=== PATIENT | female | born 1980 ===

== ENCOUNTER 2018-01-07 04:35 | Inpatient (IN) | payer OTHER, MEDICAID, SELFPAY ==
[2018-01-07] VITALS (10 sets, daily range): BP systolic 109–124; BP diastolic 66–79; PULSE 80–99; RESP 10–16; TEMP 36.6–37.3; O2SAT 98–100; BMI 34.0
[2018-01-07] MEDS: DEXTROSE 5%-0.9% NS 1,000 ML 100 ML IV (04:45)
[2018-01-07] MEDS: PROPOFOL 1,000 MG/100 ML VIAL 2.9 MG IV (06:12)
--- NOTE | 2018-01-07 06:30 | PC.ADMIT ---
Addendum entered by Julienne Canas R.N. 01/07/18 07:04: Pt awake, following commands. Communicating via sign language and writing on paper. Asked for her cellphone to look at pictures of her kids, found in belongings and given to patient. Remains calm and cooperative. Plans for extubation today per Dr. Shaw. Original Note: Addendum entered by Julienne Canas R.N. 01/07/18 06:45: Dr. Shaw updated on patient status. No new orders. Original Note: [id number] [facility] Admission Note: The patient,Kacie Greene,37 y/o, was given written information regarding hospital policies, unit procedures and contact persons. Patient's smoking status: Former smoker. Vital Signs - 8 hr 01/07/18 06:13 Temperature 98 F Pulse Rate 86 Respiratory Rate 14 Blood Pressure 109/66 Pulse Oximetry 100 Pt arrived via [facility] transport from [facility] in [facility]. VSS, afebrile. RT at bedside to setup ventilator. Sedated on Propofol GTT with a RASS +1, titrated up from 20 mcg/kg/min to 25 mcg/kg/min for goal of RASS -2. Pt able to follow simple commands however is forgetful and is visualized reaching for ETT multiple times. Tele SR, QT WNL. Sp02 100% on vent settings Fi02 100%, PEEP 5, rate 14 TV 450. EtC02 34. Macdonald maintained with adequate UO. IVF initiated per orders D5NS @ 100 mL/hour. Unable to obtain most of admission information d/t diagnosis and sedation. All information obtained from [facility] records.
--- NOTE | 2018-01-07 07:51 | PC.NURSE ---
Addendum entered by Karthik Mathew R.N. 01/07/18 09:36: Called to 0915 and reported pt requesting extubation Get this thing out as she points to ETT. Maintaining spo2 100% on 30% fio2 with RR 12-15 and adequate tidal volumes. Extubated to RA at 0930. VSS. Spo2 95-97%. Slightly hoarse sounding voice. Encouraged coughing/deep breathing. Pt reports facial and jaw pain. Provided ice packs. Removed all unnecessary lines, tubes, and cords from room. Educated pt to call light and suicide precautions. She agrees not to hurt herself while in the hospital. She is not sure if she regrets the suicide attempt. States she is happy that she was not successful, but only relates this to her kids. Call light in reach. MD on rounds at bedside 0945. Original Note: Rec'd pt in bed texting on her cell phone. She is AO x3 and making her needs known via text and nodding. She relates to me that she did attempt suicide but is not currently suicidal. She is asking for psychiatric help. She states that she moved in with her (now ex) boyfriend an unknown time ago and left her previous support system. There was some sort of falling out and they argued last night. She felt hopeless and attempted to take her own life. Titrated propofol to off at 0730. RT in at bedside initiating CPAP trial 0750.
--- NOTE | 2018-01-07 10:15 | PM.HP.1 ---
History of Present Illness Date Patient Seen: 01/07/18 Chief complaint: Polypharmacy Overdose Narrative: Patient is a 37-year-old female admitted from outside ER due to polypharmacy overdose. Patient took multiple excess tablets of her prescription medications last night in hopes to harm herself and then called 911. She was intubated upon arrival by EMS. Prior to intubation she disclosed to EMS that she took approximately 8 of her Ambien, 20 of her benzoate, 30 of her hydroxyzine, 15 of her clonazepam, unknown amount of FX or, and 40 tablets of OTC relaxol. Her urine tox screen was positive for benzodiazepine, THC screen, oxycodone, PCP screen. It was negative for amphetamines, cocaine, barbiturates. Her serum ethanol, salicylate and Tylenol were all undetectable. Urine screen negative. Her CBC and Chem panel were unremarkable as well. Patient was transferred to [facility] due to lack of availability. She was stable overnight on the vent. This morning she was wide awake and stable for extubation. Post extubation she is alert and cooperative and complaining of some sore throat. She admits to intentional overdose in suicide attempt. She presented similarly on December 29 this year with intentional polypharmacy overdose, obtunded and intubated and transfer to [facility] in [place]. She got discharged from [facility] on January 04 with plans for intake evaluation at [facility] on January 06. Patient states they did reduce her clonazepam dose on last admission from 0.5 mg 4 times daily down to 0.5 mg 3 times daily. There is bipolar history listed in her diagnosis although patient denies having received diagnosis of bipolar disorder. She has been living with her ex boyfriend. She has 2 kids who are not living with her. She has significant psychosocial stressors. She is not established with a psychiatrist or therapist and PCP has been prescribing psych medications for her. Patient History Medical History Anxiety (Acute) Bipolar 1 disorder, depressed (Acute) Borderline personality disorder (Acute) Celiac disease (Acute) Depressed (Acute) Fibromyalgia (Acute) H/O: hysterectomy (Acute) IBS (irritable bowel syndrome) (Acute) Kidney stone (Acute) Migraine (Acute) Ovarian cyst (Acute) Overdose (Acute) Panic disorder (Acute) Suicidal behavior with attempted self-injury (Acute) Surgical History H/O rectal polypectomy (Acute) Hx of cholecystectomy (Acute) Family & Social History Social History: household members family Safety & Behavioral: Feels Safe in Current Unwilling to Answer Environment Been Physically Hurt or Unwilling to Answer Threatened By a Person Suicidal Ideation Description Frequent Tobacco & Substance use: Tobacco type cigarettes Smoking Status Former smoker Substance Use Type marijuana,prescription drug Meds Home Medications Medication Instructions Recorded Confirmed Type Relax-All See Label Instructions .ROUTE 01/07/18 History .COMPLEX benzonatate 1 tab PO BEDTIME PRN 01/07/18 01/07/18 History clonazepam 0.5 mg PO TID 01/07/18 01/07/18 History hydroxyzine HCl 1 - 2 tab PO Q4H PRN 01/07/18 01/07/18 History venlafaxine 150 mg PO DAILY 01/07/18 01/07/18 History zolpidem [Ambien] 5 mg PO BEDTIME PRN 01/07/18 01/07/18 History Allergies Allergy/AdvReac Type Severity Reaction Status Date / Time amoxicillin Allergy Verified 01/07/18 05:27 aspirin Allergy Verified 01/07/18 05:27 carbamazepine Allergy Verified 01/07/18 05:27 morphine Allergy Verified 01/07/18 05:27 Penicillins Allergy Verified 01/07/18 05:27 Review of Systems Review of Systems All systems reviewed & are unremarkable except as noted in HPI and below Exam Vital Signs (past 8 hours): Vital Signs - 8 hr 01/07/18 06:13 01/07/18 06:38 01/07/18 07:12 Temperature 98 F Pulse Rate 86 94 H Respiratory Rate 14 16 Blood Pressure 109/66 119/75 Pulse Oximetry 100 100 100 01/07/18 08:00 Temperature 98.3 F Pulse Rate 94 H Respiratory Rate 16 Blood Pressure 124/75 H Pulse Oximetry 100 Pulse Oximetry 100 Fraction of Inspired Oxygen 40 Oxygen Delivery Method CPAP Oxygen Flow Rate 40 Narrative Exam Narrative: General: Patient is seen post extubation. She is fully alert and cooperative. Eyes: Pupils equal and reactive, extraocular muscles intact Oropharynx: Unremarkable Neck: Supple Lungs: Clear Heart: Normal S1 and S2, regular rhythm without murmur Abdomen: Soft and nontender Extremities: Nonedematous Neurological: Fully oriented, no focal findings Psychiatric: Affect slightly diminished, speech nonpressured, no flight of ideas Skin: Warm and dry, no rash Objective Labs Labs: Laboratory Results - last 24 hr 01/07/18 04:45 Nasal Screen MRSA (PCR) Negative for mrsa Assessment & Plan Plan: Assessment/Plan Narrative: 1. Polypharmacy overdose with respiratory depression: Patient extubated uneventfully and is medically stable for suitable discharge. Start on diet. Remove Macdonald catheter and Hep-Lock IV. Tylenol and ibuprofen as needed for pain. Resume clonazepam 0.5 mg 3 times daily per patient request to control anxiety and facilitate care. Hold other medications. Social work services to do mental health evaluation. As this is her 2nd intentional overdose in the past week, and just 2 days after discharge from outside facility, she will need inpatient psychiatric treatment. Quality VTE Deep Vein Thrombosis/Pulmonary Embolism Present on Admission: No
--- NOTE | 2018-01-07 10:31 | P.HP_ITS ---
History of Present Illness Date Patient Seen: 01/07/18 Chief complaint: Polypharmacy Overdose Narrative: Patient is a 37-year-old female admitted from outside ER due to polypharmacy overdose. Patient took multiple excess tablets of her prescription medications last night in hopes to harm herself and then called 911. She was intubated upon arrival by EMS. Prior to intubation she disclosed to EMS that she took approximately 8 of her Ambien, 20 of her benzoate, 30 of her hydroxyzine, 15 of her clonazepam, unknown amount of FX or, and 40 tablets of OTC relaxol. Her urine tox screen was positive for benzodiazepine, THC screen, oxycodone, PCP screen. It was negative for amphetamines, cocaine, barbiturates. Her serum ethanol, salicylate and Tylenol were all undetectable. Urine screen negative. Her CBC and Chem panel were unremarkable as well. Patient was transferred to [facility] due to lack of availability. She was stable overnight on the vent. This morning she was wide awake and stable for extubation. Post extubation she is alert and cooperative and complaining of some sore throat. She admits to intentional overdose in suicide attempt. She presented similarly on December 29 this year with intentional polypharmacy overdose, obtunded and intubated and transfer to [facility] in [place]. She got discharged from [facility] on January 04 with plans for intake evaluation at [facility] on January 06. Patient states they did reduce her clonazepam dose on last admission from 0.5 mg 4 times daily down to 0.5 mg 3 times daily. There is bipolar history listed in her diagnosis although patient denies having received diagnosis of bipolar disorder. She has been living with her ex boyfriend. She has 2 kids who are not living with her. She has significant psychosocial stressors. She is not established with a psychiatrist or therapist and PCP has been prescribing psych medications for her. Patient History Medical History Anxiety (Acute) Bipolar 1 disorder, depressed (Acute) Borderline personality disorder (Acute) Celiac disease (Acute) Depressed (Acute) Fibromyalgia (Acute) H/O: hysterectomy (Acute) IBS (irritable bowel syndrome) (Acute) Kidney stone (Acute) Migraine (Acute) Ovarian cyst (Acute) Overdose (Acute) Panic disorder (Acute) Suicidal behavior with attempted self-injury (Acute) Surgical History H/O rectal polypectomy (Acute) Hx of cholecystectomy (Acute) Family & Social History Social History: household members family Safety & Behavioral: Feels Safe in Current Unwilling to Answer Environment Been Physically Hurt or Unwilling to Answer Threatened By a Person Suicidal Ideation Description Frequent Tobacco & Substance use: Tobacco type cigarettes Smoking Status Former smoker Substance Use Type marijuana,prescription drug Meds Home Medications Medication Instructions Recorded Confirmed Type Relax-All See Label Instructions .ROUTE 01/07/18 History .COMPLEX benzonatate 1 tab PO BEDTIME PRN 01/07/18 01/07/18 History clonazepam 0.5 mg PO TID 01/07/18 01/07/18 History hydroxyzine HCl 1 - 2 tab PO Q4H PRN 01/07/18 01/07/18 History venlafaxine 150 mg PO DAILY 01/07/18 01/07/18 History zolpidem [Ambien] 5 mg PO BEDTIME PRN 01/07/18 01/07/18 History Allergies Allergy/AdvReac Type Severity Reaction Status Date / Time amoxicillin Allergy Verified 01/07/18 05:27 aspirin Allergy Verified 01/07/18 05:27 carbamazepine Allergy Verified 01/07/18 05:27 morphine Allergy Verified 01/07/18 05:27 Penicillins Allergy Verified 01/07/18 05:27 Review of Systems Review of Systems All systems reviewed & are unremarkable except as noted in HPI and below Exam Vital Signs (past 8 hours): Vital Signs - 8 hr 3 01/07/18 06:13 01/07/18 06:38 01/07/18 07:12 Temperature 98 F Pulse Rate 86 94 H Respiratory Rate 14 16 Blood Pressure 109/66 119/75 Pulse Oximetry 100 100 100 3 01/07/18 08:00 Temperature 98.3 F Pulse Rate 94 H Respiratory Rate 16 Blood Pressure 124/75 H Pulse Oximetry 100 Pulse Oximetry 100 Fraction of Inspired Oxygen 40 Oxygen Delivery Method CPAP Oxygen Flow Rate 40 Narrative Exam Narrative: General: Patient is seen post extubation. She is fully alert and cooperative. Eyes: Pupils equal and reactive, extraocular muscles intact Oropharynx: Unremarkable Neck: Supple Lungs: Clear Heart: Normal S1 and S2, regular rhythm without murmur Abdomen: Soft and nontender Extremities: Nonedematous Neurological: Fully oriented, no focal findings Psychiatric: Affect slightly diminished, speech nonpressured, no flight of ideas Skin: Warm and dry, no rash Objective Labs Labs: Laboratory Results - last 24 hr 01/07/18 04:45 Nasal Screen MRSA (PCR) Negative for mrsa Assessment & Plan Plan: Assessment/Plan Narrative: 1. Polypharmacy overdose with respiratory depression: Patient extubated uneventfully and is medically stable for suitable discharge. Start on diet. Remove Macdonald catheter and Hep-Lock IV. Tylenol and ibuprofen as needed for pain. Resume clonazepam 0.5 mg 3 times daily per patient request to control anxiety and facilitate care. Hold other medications. Social work services to do mental health evaluation. As this is her 2nd intentional overdose in the past week, and just 2 days after discharge from outside facility, she will need inpatient psychiatric treatment. Quality VTE Deep Vein Thrombosis/Pulmonary Embolism Present on Admission: No
--- NOTE | 2018-01-07 10:50 | SLP.IPNOTE ---
PRIOR AUTHORIZATION NURSE screened patient for swallowing ability after extubation. RT, Anoop, present to observe. Patient tolerated thin liquids via cup and straw as well as applesauce without difficulty. PRIOR AUTHORIZATION NURSE provided education regarding swallowing recovery post-extubation and stressed the importance of upright positioning for all intake. The patient verbalized understanding. No formal clinical swallow evaluation needed at this time. Spoke with Dr Shaw regarding possible need for Cog Eval. He stated that it is not warranted at this time. Please consult if needed. No billable charge.
[2018-01-07] MEDS: clonazePAM 0.5 MG TABLET PO ×2 (10:54→15:54)
[2018-01-07] MEDS: ACETAMINOPHEN 325 MG TABLET 650 MG PO ×2 (10:54→15:53)
[2018-01-07] MEDS: IBUPROFEN 400 MG TABLET PO (12:43)
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
--- NOTE | 2018-01-07 16:13 | CM.DPNOTE ---
Faxed initial clinical to [facility] at [facility] [phone]. PONCHO
--- NOTE | 2018-01-07 16:31 | CM.SWNOTE ---
[place] FAT[facility]/Emanuel: Called and able to accept patient tonight. Called Medicaid Cert line: 24 hour auth provided. Called COUPLING MACHINE OPERATOR/Stephy: Requested she coordinate discharge and transportation.
--- NOTE | 2018-01-07 16:48 | PC.NURSE ---
2361- Plan to discharge patient to inpatient psychiatric facility. Dr. Shaw notified of plan. Pt is stable no ideation or plan. Pt calm and cooperative with care. Pt aware of plan to transfer to a treatment facility. Pt making good eye contact when conversing. Will monitor.
--- NOTE | 2018-01-07 16:52 | P.DS_ITS ---
History of Present Illness Chief complaint: Polypharmacy Overdose Narrative: Patient is a 37-year-old female admitted from outside ER due to polypharmacy overdose. Patient took multiple excess tablets of her prescription medications last night in hopes to harm herself and then called 911. She was intubated upon arrival by EMS. Prior to intubation she disclosed to EMS that she took approximately 8 of her Ambien, 20 of her benzoate, 30 of her hydroxyzine, 15 of her clonazepam, unknown amount of FX or, and 40 tablets of OTC relaxol. Her urine tox screen was positive for benzodiazepine, THC screen, oxycodone, PCP screen. It was negative for amphetamines, cocaine, barbiturates. Her serum ethanol, salicylate and Tylenol were all undetectable. Urine screen negative. Her CBC and Chem panel were unremarkable as well. Patient was transferred to [facility] due to lack of availability. She was stable overnight on the vent. This morning she was wide awake and stable for extubation. Post extubation she is alert and cooperative and complaining of some sore throat. She admits to intentional overdose in suicide attempt. She presented similarly on December 29 this year with intentional polypharmacy overdose, obtunded and intubated and transfer to [facility] in [place]. She got discharged from [facility] on January 04 with plans for intake evaluation at [facility] on January 06. Patient states they did reduce her clonazepam dose on last admission from 0.5 mg 4 times daily down to 0.5 mg 3 times daily. There is bipolar history listed in her diagnosis although patient denies having received diagnosis of bipolar disorder. She has been living with her ex boyfriend. She has 2 kids who are not living with her. She has significant psychosocial stressors. She is not established with a psychiatrist or therapist and PCP has been prescribing psych medications for her. Discharge Providers Date of admission: 01/07/18 05:30 Discharge provider: Rodríguez Shaw MD Summary Discharge Diagnosis: 1. Polypharmacy overdose 2. Respiratory depression 3. Mood disorder Hospital Course: Patient was on ventilator overnight and uneventfully extubated this morning. She has been in stable medical condition since extubation. Social work services assess patient and determine need for inpatient psychiatric hospitalization which has been arranged for her at [facility]. Patient will be transferred via BLS. Exam Vital Signs (past 8 hours): Vital Signs - 8 hr 3 01/07/18 13:39 01/07/18 13:40 01/07/18 15:59 Temperature 99.1 F 97.9 F Pulse Rate 99 H 89 Respiratory Rate 16 16 Blood Pressure 114/73 Pulse Oximetry 98 98 99 Pulse Oximetry 99 Fraction of Inspired Oxygen 40 Oxygen Delivery Method Room Air Oxygen Flow Rate 0 Objective Labs Labs: Laboratory Results - last 24 hr 01/07/18 04:45 Nasal Screen MRSA (PCR) Negative for mrsa Discharge Plan Discharge Plan Patient Disposition: [facility] Discharge Med Rec/Prescriptions Prescriptions: Continue venlafaxine 150 mg Capsule,Extended Release 24hr 150 mg PO DAILY RF: 0 zolpidem [Ambien] 10 mg Tablet 5 mg PO BEDTIME PRN (Reason: Insomnia) RF: 0 clonazepam 0.5 mg Tablet 0.5 mg PO TID RF: 0 benzonatate 100 mg Capsule 1 tab PO BEDTIME PRN (Reason: Cough) RF: 0 hydroxyzine HCl 25 mg Tablet 1 - 2 tab PO Q4H PRN (Reason: Anxiety) RF: 0 Relax-All See Label Instructions .ROUTE .COMPLEX RF: 0 Discharge Health Status Multidrug resistant organism: No MDRO Provider Discharge Instructions Diet: Diet as Tolerated Discharge Data Attending Provider: Rodríguez Shaw Admit Date/Time: 01/07/18 05:30 Quality VTE Deep Vein Thrombosis/Pulmonary Embolism Present on Admission: No
--- NOTE | 2018-01-07 19:04 | PC.NURSE ---
1903- Pt discharged to ambulance personell for transport to [facility]. Pt IV sites x2 dc'd. Pt tolerated well. Pt was alert and oriented and stable at the time of discharge. Report given to [facility] at [place] at 1845hr. Pt calm and cooperative with discharge.
== END 2018-01-07 19:03 | DRG 812 ==
PROVIDERS: Admitting Provider Internal Medicine; Visit Provider Internal Medicine
DX: T42.6X2A Poisoning by other antiepileptic and sedative-hypnotic drugs, intentional self-harm, initial encounter (principal); T43.592A Poisoning by other antipsychotics and neuroleptics, intentional self-harm, initial encounter; T42.4X2A Poisoning by benzodiazepines, intentional self-harm, initial encounter; G93.89 Other specified disorders of brain; F31.89 Other bipolar disorder; T14.91XA Suicide attempt, initial encounter
CPT/HCPCS: 87797; 94002; 94003; 94770; 94799; G0378; G0379; J2704